=== PATIENT | female | born 1955 ===

== ENCOUNTER 2022-03-17 08:24 | Outpatient (CLI) | payer OTHER | END 2022-03-17 08:25 | disposition home or self-care (01) | LOC: SONOGRAMA 08:24 | PROVIDERS: ATTEND Pathology Anatomic Pathology & Clinical Pathology | DX: E04.1 Nontoxic single thyroid nodule (principal); D34 Benign neoplasm of thyroid gland; E06.3 Autoimmune thyroiditis ==

== ENCOUNTER 2023-02-14 05:11 | Day surgery (SDC) | payer OTHER ==
[~2023-02-14] VITALS: Ht 160 cm; Wt 62.1 kg
[~2023-02-14 05:11] MED LIST: ATACAND32 MG PO; JANUMET XR 50-1 EACH PO; LIPITOR20 MG PO; METHIMAZOLE10 MG PO; PROPRANOLOL HCL10 MG PO
== END 2023-02-14 12:55 | disposition home or self-care (01) ==
LOC: CIR.AMB 05:11
PROVIDERS: ATTEND Surgery
DX: D17.24 Benign lipomatous neoplasm of skin and subcutaneous tissue of left leg (principal); R22.42 Localized swelling, mass and lump, left lower limb; Z20.822 Contact with and (suspected) exposure to COVID-19; E11.9 Type 2 diabetes mellitus without complications; E05.90 Thyrotoxicosis, unspecified without thyrotoxic crisis or storm